=== PATIENT | female | born 1950 | race Asian ===

== ENCOUNTER 2023-07-31 15:21 | Outpatient (CLI) | payer MEDICARE, OTHER ==
--- NOTE | 2023-07-31 20:46 | DEXA Report ---
PROCEDURE: Dexa Spine and/or Hip INDICATIONS: POST MENOPAUSAL TECHNIQUE: Dual energy x-ray absorptiometry (DEXA) was performed in the regions detailed below. COMPARISON: None. FINDINGS: Lumbar Spine: Bone Mineral Density 1.179 g/cm/cm,T score 0. Normal Left Femoral Neck: Bone Mineral Density 0.829 g/cm/cm, T score -1.5. Osteopenia Left Hip: Bone Mineral Density 0.995 g/cm/cm,T score -0.1. Normal (T score greater or equal to -1.0: NORMAL) (T score from -1.1 to -2.4: OSTEOPENIA) (T score less than or equal to -2.5 to: OSTEOPOROSIS) IMPRESSION: Osteopenia Patients with diagnosis of osteoporosis or osteopenia should have regular bone mineral density assess ment. For those eligible for Medicare, routine testing is allowed once every 2 years. Testing frequ ency can be increased for patients who have rapidly progressing disease or for those who are receivin g medical therapy to restore bone mass. Reviewed by: Nawaf Cox MD on 07/31/2023 7:45 PM DWIGHT Approved by: Nawaf Cox MD on 07/31/2023 7:45 PM [facility]ONICA Station ID: [id number]
== END 2023-07-31 15:22 | disposition home or self-care (01) ==
LOC: DI 15:21
PROVIDERS: ATTEND Family Medicine
DX: Z78.0 Asymptomatic menopausal state (principal); M85.88 Other specified disorders of bone density and structure, other site

== ENCOUNTER 2024-07-07 08:33 | Day surgery (SDC) | payer MEDICARE, OTHER ==
[2024-07-07] MEDS: PROPARACAINE 0.5% OPHTH DROPS 15 ML ONE (09:14)
[2024-07-07] MEDS: KETOROLAC TROMETHAMINE 0.5% OPHTH DROPS 5 ML ONE (09:15)
[2024-07-07] MEDS: CYCLOPENTOLATE 1% OPHTH DROPS 2 ML ONE (09:16)
[2024-07-07] MEDS: PHENYLEPHRINE 2.5% OPHTH 2 ML DROPS ONE (09:16)
[2024-07-07] MEDS: LACTATED RINGERS 1,000 ML IV ONE ×2 (09:26→10:56)
--- NOTE | 2024-07-07 09:50 | ANESTHESIA ---
Pre-Anesthesia VS, & Labs - Diagnosis L senile combined cataract - Procedure Extraction L cataract with IOL Vital Signs: Temp Pulse Resp BP Pulse Ox O2 Flow Rate 36.4 C L 60 14 123/64 98 07/07/24 09:04 07/07/24 09:04 07/07/24 09:04 07/07/24 09:04 07/07/24 09:04 Height: 5 ft 2 in Weight (kg): 65.5 kg Body Mass Index: 26.4 BMI Classification: Overweight - NPO >8 hours Last Fluid Intake: am H20 - Is Patient ?: No - Lab Results Lab results reviewed: Yes Home Medications and Allergies Home Medications: Ambulatory Orders Biotin 5,000 mcg PO DAILY 07/06/24 Cholecalciferol [Vitamin D3] 25 mcg PO DAILY 07/06/24 Mv-Mn/Om3/Dha/Epa/Fish/Lut/Abiola [Ocuvite Adult 50 Plus Softgel] 1 each PO DAILY 07/06/24 Rosuvastatin Calcium 10 mg PO DAILY 07/06/24 Vitamin B Complex Vit C No.3 [B Complex with Vitamin C] 1 each PO DAILY 07/06/24 amLODIPine [Norvasc] 5 mg PO DAILY 07/06/24 Biotin 5,000 mcg PO DAILY 07/06/24 Cholecalciferol [Vitamin D3] 25 mcg PO DAILY 07/06/24 Mv-Mn/Om3/Dha/Epa/Fish/Lut/Abiola [Ocuvite Adult 50 Plus Softgel] 1 each PO DAILY 07/06/24 Rosuvastatin Calcium 10 mg PO DAILY 07/06/24 Vitamin B Complex Vit C No.3 [B Complex with Vitamin C] 1 each PO DAILY 07/06/24 amLODIPine [Norvasc] 5 mg PO DAILY 07/06/24 Allergies/Adverse Reactions: Allergies Allergy/AdvReac Type Severity Reaction Status Date / Time aspirin Allergy Rash Verified 07/06/24 14:03 Penicillins Allergy Unknown Verified 07/06/24 14:03 Anes History & Medical History - Anesthetic History Anesthesia Complications: reports: No previous complications Family history of Anesthesia Complications: Denies Family history of Malignant Hyperthermia: Denies - Medical History Cardiovascular: reports: Hypertension, High cholesterol Pulmonary: reports: None Gastrointestinal: reports: None Urinary: reports: Other Musculoskeletal: reports: Osteoarthritis Endocrine/Autoimmune: reports: None Skin: reports: None - Surgical History Gynecologic: reports: section, Mastectomy Orthopedic: reports: Knee replacement Exam General: Alert, Oriented x3, Cooperative Mouth Openin Fingerbreadth Neck Mobility: Normal Mallampati classification: III Thyromental Distance: 4-6 cm Respiratory: Lungs clear, Normal breath sounds, No respiratory distress Cardiovascular: Regular rate Neurological: Normal speech Mental/Cognitive Status: Alert/Oriented X3, Normal for patient Plan Anesthesia Type: MAC Consent for Procedure(s) Verified and Reviewed: Yes Code Status: Attempt Resuscitation ASA classification: 2-Mild systemic disease Is this case an emergency?: No
[2024-07-07] MEDS ORDERED: MIDAZOLAM 2 MG/2 ML VIAL ONE (10:02)
[2024-07-07] MEDS ORDERED: TIMOLOL 0.5% OPHTH DROPS ONE (10:03)
[2024-07-07] MEDS ORDERED: EPINEPHrine 1 MG/ML AMP ONE ×2 (10:03→10:29)
[2024-07-07] MEDS ORDERED: TRIAMCIN/MOXIFLOX OPHTHALMIC 0.6 ML VIAL IO ONE (10:03)
[2024-07-07] MEDS ORDERED: BSS/LIDOCAINE/EPINEPHRINE 1 ML VIAL ONE ×2 (10:03→10:35)
[2024-07-07] MEDS ORDERED: BRIMONIDINE 0.2% OPHTH DROPS 5 ML ONE (10:03)
[2024-07-07] MEDS: EPINEPHrine 1 MG/ML AMP IR ONE (10:42)
[2024-07-07] MEDS: BRIMONIDINE 0.2% OPHTH DROPS 5 ML OPTH ONE (10:42)
[2024-07-07] MEDS: TIMOLOL 0.5% OPHTH DROPS OPTH ONE (10:42)
[2024-07-07] MEDS: BSS/LIDOCAINE/EPINEPHRINE 1 ML SYRINGE IO ONE (10:42)
[2024-07-07] MEDS: TRIAMCIN/MOXIFLOX OPHTHALMIC 0.6 ML VIAL IO ONE (10:43)
[2024-07-07] MEDS: VANCOMYCIN OPHTH (TOPICAL) 10 MG/ML SYRINGE TOP ONE (10:43)
[2024-07-07] MEDS: PROPARACAINE 0.5% OPHTH DROPS 15 ML LEFTEYE ONE (10:43)
--- NOTE | 2024-07-07 10:56 | OPERATIVE REPORT ---
Operative Report - Other Other Information/Narrative: Date of Surgery: 07/07/24 Preop Dx: Visually significant cataract left eye. This was the first cataract surgery. Postop Dx: Same Procedure: Phacoemulsification with posterior chamber toric intraocular lens implant left eye Surgeon: Dr. Preston John Anesthesia: Monitored anesthesia care Complications: None Operative Indications: This is a 74-year-old F with progressive vision loss in the left eye due to 2+ nuclear sclerotic, 2+ cortical, and vacuolar cataract. Best corrected visual acuity was 20/20 with glare to 20/200 vision in the left eye. Indications for surgery were: - Overall decrease in vision - Difficulty seeing words on a computer screen - Difficulty reading - Difficulty seeing words, closed captions, or game scores on TV - Difficulty seeing street signs - Difficulty driving in low light or at night - Difficulty driving at night because of headlights from other vehicles - Difficulty with glare or bright lights in any situation The patient was consented at length concerning the risks and benefits of cataract surgery after which the patient expressed a desire to proceed with surgery. Operative Procedure: The patients cornea was marked in the pre-surgical area to indicate the axis for the toric intraocular lens. The patient was taken into OR#3 and placed under monitored anesthesia care. A surgical time-out was conducted confirming correct patient, correct procedure, and correct surgical site. The patient was given topical anesthesia and then prepped and draped in the usual sterile fashion. The eye was entered at the 6 and 3 oclock positions. Intracameral Shugarcaine was injected into the anterior chamber followed by a dispersive viscoelastic. A continuous-tear curvilinear capsulorhexis was performed. The nucleus was hydrodissected and phacoemulsified. The cortex was evacuated using automated infusion and aspiration. A cohesive viscoelastic was injected into the capsular bag and a 20.5 diopter toric intraocular lens was inserted into the bag and rotated to axis 176 (pre-marked on the cornea). Infusion and aspiration were used to evacuate the viscoelastic materials from the eye and the IOL was verified to remain on axis. The wounds were hydrated and the eye inflated to physiologic pressure using balanced salt solution. Approximately 0.25ml of a mixture of triamcinolone and moxifloxacin was injected trans-sclerally into the vitreous in the inferotemporal quadrant using a 30 gauge cannula. An additional 0.25ml of a mixture of triamcinolone and moxifloxacin was injected subconjunctivally in the superior quadrant for infection and inflammation prophylaxis. Wound integrity was checked with Weck- [place] sponges and the IOL axis was once again verified to be on the correct axis. The patient was taken from the operating room in good condition and given post- op instructions.
--- NOTE | 2024-07-07 11:10 | ANESTHESIA POST OP EVALUATION ---
Anesthesia Post Eval - Post Anesthesia Eval Vitals: Last Vital Signs Temp 36.2 C L 07/07/24 10:55 Pulse 62 07/07/24 11:06 Resp 14 07/07/24 11:06 BP 115/56 L 07/07/24 11:06 Pulse Ox 98 07/07/24 11:06 O2 Flow Rate CV Function Including HR & BP: Stable Pain Control: Satisfactory Nausea & Vomiting: Negative Mental Status: Baseline Respiratory Status: Airway Patent Hydration Status: Satisfactory Anesthesia Complications: None
[2024-07-07 11:27] VITALS: BP 113/58; O2SAT 96
== END 2024-07-07 08:34 | disposition home or self-care (01) ==
LOC: SDS 08:33
PROVIDERS: ATTEND Ophthalmology
DX: H25.812 Combined forms of age-related cataract, left eye (principal); I10 Essential (primary) hypertension; E78.00 Pure hypercholesterolemia, unspecified
CPT/HCPCS: 66984; A9270; J3490; J7120; V2632